=== PATIENT | male | born 1955 | race Two or more races ===

== ENCOUNTER 2017-08-31 11:50 | Outpatient (CLI) | payer OTHER ==
[~2017-08-31 11:50] MED LIST: ALBUTEROL2.5 MG/3 M IH; COZAAR PO; FUROSEMIDE10 MG/M1 IV; HumaLOG 100 UNIT/1 ML (3ML) SUBCUTANEO; Lantus 1000 U/10 ML SUBCUTANEO
== END 2017-08-31 14:38 | disposition home or self-care (01) ==
LOC: RAD 11:50
DX: M12.862 Other specific arthropathies, not elsewhere classified, left knee (principal); M17.12 Unilateral primary osteoarthritis, left knee

== ENCOUNTER 2017-09-07 11:41 | Outpatient (CLI) | payer OTHER | END 2017-09-07 11:51 | disposition home or self-care (01) | LOC: SONOGRAMA 11:41 → MAMO-SONO 13:45 | DX: M12.88 Other specific arthropathies, not elsewhere classified, other specified site (principal); M19.90 Unspecified osteoarthritis, unspecified site ==

== ENCOUNTER 2017-10-02 12:23 | Outpatient (CLI) | payer OTHER | END 2017-10-02 17:00 | disposition home or self-care (01) | LOC: TOM 12:23 | DX: R97.20 Elevated prostate specific antigen [PSA] (principal); K40.20 Bilateral inguinal hernia, without obstruction or gangrene, not specified as recurrent | CPT/HCPCS: 74178; Q9965 ==

== ENCOUNTER 2017-10-05 09:27 | Outpatient (CLI) | payer OTHER | END 2017-10-05 09:35 | disposition home or self-care (01) | LOC: NUCLEAR 09:27 | DX: C61 Malignant neoplasm of prostate (principal) | CPT/HCPCS: 78306; A9503 ==

== ENCOUNTER 2018-04-20 06:57 | Emergency (ER) | payer OTHER ==
[~2018-04-20] VITALS: Ht 170.2 cm; Wt 122.5 kg
[2018-04-20] MEDS ORDERED: FORTAMET1000 MG (07:30)
[2018-04-20] MEDS ORDERED: TOPROL XL100 MG (07:31)
[2018-04-20] MEDS ORDERED: CATAPRES0.1 MG (07:31)
[2018-04-20] MEDS ORDERED: AMLOD-VALSA-HC1 EAC1 (07:31)
[2018-04-20] MEDS ORDERED: GLIMEPIRIDE4 MG (07:32)
[2018-04-20] MEDS ORDERED: SYNTHROID50 MCG (07:32)
[2018-04-20] MEDS ORDERED: SINGULAIR10 MG (07:32)
[2018-04-20] MEDS ORDERED: TRAMADOL HCL50 MG (07:33)
[2018-04-20] MEDS ORDERED: IMODIUM A-D2 M2 (07:33)
[2018-04-20] MEDS ORDERED: ADVAIR 100-501 EACH (07:34)
[2018-04-20] MEDS ORDERED: NOVOLIN R100 UNIT/1 (07:34)
[2018-04-20] MEDS ORDERED: LUPRON DEPOT22.5 MG (07:35)
[2018-04-20] MEDS ORDERED: AVAPRO300 MG (07:36)
[2018-04-20] MEDS ORDERED: ASPIR 8181 MG (07:36)
[2018-04-20] MEDS ORDERED: DICLOFENAC POTA50 MG (07:37)
[2018-04-20] MEDS ORDERED: SIMBRINZA 1%-0.28 ML (07:37)
[2018-04-20] MEDS ORDERED: PEPCID40 MG (07:37)
== END 2018-04-20 14:04 | disposition home or self-care (01) ==
LOC: ER 06:57
DX: M79.18 Myalgia, other site (principal)

== ENCOUNTER 2018-12-20 10:43 | Outpatient (CLI) | payer OTHER ==
[~2018-12-20 10:43] MED LIST changes: +ADVAIR 100-501 EACH; +AMLOD-VALSA-HC1 EAC1; +ASPIR 8181 MG; +AVAPRO300 MG; +CATAPRES0.1 MG; +DICLOFENAC POTA50 MG; +FORTAMET1000 MG; +GLIMEPIRIDE4 MG; +IMODIUM A-D2 M2; +LUPRON DEPOT22.5 MG; +NOVOLIN R100 UNIT/1; +PEPCID40 MG; +SIMBRINZA 1%-0.28 ML; +SINGULAIR10 MG; +SYNTHROID50 MCG; +TOPROL XL100 MG; +TRAMADOL HCL50 MG
== END 2018-12-20 10:46 | disposition home or self-care (01) ==
LOC: RAD 10:43
DX: M70.61 Trochanteric bursitis, right hip (principal); M70.62 Trochanteric bursitis, left hip; M54.5 Low back pain

== ENCOUNTER 2020-01-30 09:17 | Outpatient (CLI) | payer OTHER | END 2020-01-30 10:12 | disposition home or self-care (01) | LOC: NUCLEAR 09:17 | PROVIDERS: ATTEND Internal Medicine Cardiovascular Disease | DX: I87.2 Venous insufficiency (chronic) (peripheral) (principal) ==

== ENCOUNTER 2020-01-31 08:42 | Outpatient (CLI) | payer OTHER | END 2020-01-31 08:56 | disposition home or self-care (01) | LOC: NUCLEAR 08:42 | PROVIDERS: ATTEND Internal Medicine Cardiovascular Disease | DX: I73.9 Peripheral vascular disease, unspecified (principal) ==

== ENCOUNTER 2020-05-04 07:37 | Outpatient (CLI) | payer OTHER | END 2020-05-04 07:43 | disposition home or self-care (01) | LOC: RAD 07:37 | PROVIDERS: ATTEND Internal Medicine Cardiovascular Disease | DX: M12.88 Other specific arthropathies, not elsewhere classified, other specified site (principal); M46.47 Discitis, unspecified, lumbosacral region ==

== ENCOUNTER 2020-11-02 07:38 | Outpatient (CLI) | payer OTHER | END 2020-11-02 07:39 | disposition home or self-care (01) | LOC: NUCLEAR 07:38 | DX: I73.9 Peripheral vascular disease, unspecified (principal) ==

== ENCOUNTER 2020-11-03 09:48 | Outpatient (CLI) | payer OTHER | END 2020-11-03 10:00 | disposition home or self-care (01) | LOC: NUCLEAR 09:48 | PROVIDERS: ATTEND Surgery | DX: I87.2 Venous insufficiency (chronic) (peripheral) (principal) ==

== ENCOUNTER 2021-03-05 00:24 | Inpatient (IN) | payer OTHER ==
[~2021-03-05] VITALS: Ht 170.2 cm; Wt 136.1 kg
[2021-03-05] MEDS ORDERED: HUMULIN R100 UNIT/1 (00:39)
[2021-03-09] MEDS ORDERED: LEVOTHYROXINE50 MCG PO (13:35)
[2021-03-09] MEDS ORDERED: FAMOTIDINE20 MG PO (13:39)
[2021-03-09] MEDS ORDERED: CIPRO100 MG PO (13:39)
[2021-03-09] MEDS ORDERED: HUMULIN R100 UNIT/1 SUBCUTANEO (13:39)
[2021-03-09] MEDS ORDERED: POM (MEDICAMENTO EN IH (13:39)
[2021-03-09] MEDS ORDERED: AVAPRO300 MG PO (13:39)
[2021-03-09] MEDS ORDERED: INTESTINEX680 M1 PO (13:39)
[2021-03-09] MEDS ORDERED: POM (MEDICAMENTO EN OP (13:39)
[2021-03-09] MEDS ORDERED: MONTELUKAST SOD10 MG PO (13:39)
[2021-03-09] MEDS ORDERED: Neurin-Sl Tablet Sl SL (13:39)
[2021-03-09] MEDS ORDERED: OXYC1TAB9 PO (13:39)
[2021-03-09] MEDS ORDERED: Lantus 1000 UNITS/10 SUBCUTANEO (13:39)
[2021-03-09] MEDS ORDERED: TOPROL XL100 M1 PO (13:39)
[2021-03-09] MEDS ORDERED: SIMVASTATIN10 MG PO (13:39)
[2021-03-09] MEDS ORDERED: AMLODIPINE BESY10 MG PO (13:39)
[2021-03-09] MEDS ORDERED: TRAZODONE HCL50 MG PO (13:39)
== END 2021-03-09 16:52 | disposition home or self-care (01) | DRG 300 ==
LOC: ER 00:24 → SURG 12:52 → SEC-K 12:52 → SURG 17:02 → MEDI 03-08 16:46
PROVIDERS: ADMIT Internal Medicine; ATTEND Internal Medicine
PROC: B54BZZZ Ultrasonography of Right Lower Extremity Veins (ICD-10-PCS; principal; 2021-03-05)
PROC: 3E0F7GC Introduction of Other Therapeutic Substance into Respiratory Tract, Via Natural or Artificial Opening (ICD-10-PCS; 2021-03-05)
PROC: 3E0F7SF Introduction of Other Gas into Respiratory Tract, Via Natural or Artificial Opening (ICD-10-PCS; 2021-03-05)
DX: I83.015 Varicose veins of right lower extremity with ulcer other part of foot (principal); L97.818 Non-pressure chronic ulcer of other part of right lower leg with other specified severity; B96.5 Pseudomonas (aeruginosa) (mallei) (pseudomallei) as the cause of diseases classified elsewhere; B95.61 Methicillin susceptible Staphylococcus aureus infection as the cause of diseases classified elsewhere; L08.89 Other specified local infections of the skin and subcutaneous tissue; E11.65 Type 2 diabetes mellitus with hyperglycemia; I10 Essential (primary) hypertension; Z79.4 Long term (current) use of insulin; Z20.822 Contact with and (suspected) exposure to COVID-19; J45.998 Other asthma

== ENCOUNTER 2024-01-31 09:03 | Outpatient (CLI) | payer OTHER ==
[~2024-01-31 09:03] MED LIST changes: +AMLODIPINE BESY10 MG PO; +AVAPRO300 MG PO; +CIPRO100 MG PO; +FAMOTIDINE20 MG PO; +HUMULIN R100 UNIT/1; +HUMULIN R100 UNIT/1 SUBCUTANEO; +INTESTINEX680 M1 PO; +LEVOTHYROXINE50 MCG PO; +Lantus 1000 UNITS/10 SUBCUTANEO; +MONTELUKAST SOD10 MG PO; +Neurin-Sl Tablet Sl SL; +OXYC1TAB9 PO; +POM (MEDICAMENTO EN IH; +POM (MEDICAMENTO EN OP; +SIMVASTATIN10 MG PO; +TOPROL XL100 M1 PO; +TRAZODONE HCL50 MG PO
== END 2024-01-31 09:08 | disposition home or self-care (01) ==
LOC: TOM 09:03
PROVIDERS: ATTEND Surgery
DX: J01.00 Acute maxillary sinusitis, unspecified (principal); R22.1 Localized swelling, mass and lump, neck

== ENCOUNTER 2024-02-29 07:48 | Outpatient (CLI) | payer OTHER | END 2024-02-29 07:53 | disposition home or self-care (01) | LOC: TOM 07:48 | PROVIDERS: ATTEND Specialist | DX: C61 Malignant neoplasm of prostate (principal) ==

== ENCOUNTER → 2024-03-06 09:19 | Outpatient (CLI) | payer OTHER | END | disposition home or self-care (01) | LOC: NUCLEAR 09:19 | DX: I10 Essential (primary) hypertension (principal); R06.00 Dyspnea, unspecified; E11.69 Type 2 diabetes mellitus with other specified complication ==